=== PATIENT | female | born 1950 | race Caucasian/White ===

== ENCOUNTER 2017-02-14 18:31 | Emergency (ER) | payer SELFPAY ==
[2017-02-14] MEDS ORDERED: TYLENOL ONE (19:36)
[2017-02-14] MEDS ORDERED: TYLENOL PO ONE (19:44)
[2017-02-14 19:56] VITALS: BP 189/92
--- NOTE | 2017-02-14 21:17 | XRay Report ---
FINAL REPORT EXAM: XR SHOULDER 2 LT HISTORY: shoulder pain TECHNIQUE: 3 views of the left shoulder PRIORS: None. FINDINGS: The glenohumeral and acromioclavicular joints are normally aligned. The bones appear slightly demineralized. The soft tissues are unremarkable. IMPRESSION: Normal left shoulder.
== END 2017-02-15 03:00 | disposition left against medical advice (07) ==
LOC: ED 18:31
DX: M54.2 Cervicalgia (principal); M25.511 Pain in right shoulder; Z53.21 Procedure and treatment not carried out due to patient leaving prior to being seen by health care provider

== ENCOUNTER 2017-02-15 22:18 | Emergency (ER) | payer SELFPAY ==
[2017-02-15 22:26] VITALS: BP 152/80
== END 2017-02-16 04:13 | disposition left against medical advice (07) ==
LOC: ED 22:18
DX: M54.2 Cervicalgia (principal); M79.602 Pain in left arm; Z53.21 Procedure and treatment not carried out due to patient leaving prior to being seen by health care provider